=== PATIENT | female | born 1955 | race Caucasian/White ===

== ENCOUNTER 2024-06-08 17:38 | Emergency (ER) | payer OTHER ==
[2024-06-08 19:10] LABS: Absolute Basophils 0.1 K/uL (0-0.5); Absolute Eosinophils 0.3 K/uL (0-0.5); Absolute Lymphocytes (CBC) 1.6 K/uL (0.7-4.9); Absolute Monocytes 0.7 K/uL (0.1-1.3); Absolute Neutrophil 4.3 K/uL (1.8-8.0); Basophils % 1.8 % (0-1.3); Eosinophils % 4.1 % (0-4.4); Hematocrit 37.8 % (36.0-45.0); Hemoglobin 13.1 g/dL (12.0-15.0); Lymphocytes % 22.3 % (15.3-44.8); MCH 33.5 pg (27.0-35.0); MCHC 34.5 g/dL (32.0-36.0); MCV 96.9 fL (80-100); MPV 8.3 fL (7.6-11.3); Monocytes % 10.6 % (3.3-12.3); Neutrophils % 61.2 % (41.7-73.7); Nucleated Red Blood Cells % 0.1 % (0-0); Platelets 296 thou/uL (152-406); Red Cell Distribution Width 12.3 % (12.1-15.2)
[2024-06-08 19:51] LABS: ALT/SGPT 21 U/L (13-56); AST/SGOT 16 U/L (15-37); Albumin 3.4 g/dL (3.4-5.0); Alkaline Phosphatase 65 U/L (45-117); Anion Gap 8.8 mEq/L (5.0-15.0); BUN Blood Urea Nitrogen 23 mg/dL (7-18); Bicarbonate 31 mEq/L (21-32); Bilirubin Total 0.3 mg/dL (0.2-1.0); Globulin 3.4 g/dL (2.3-3.5); Glomerular Filtration Rate 52 ml/min (=/>90); Glucose Level 103 mg/dL (74-106); Magnesium 1.6 mg/dL (1.6-2.4); Potassium 3.8 mEq/L (3.5-5.1); Protein, Total 6.8 g/dL (6.4-8.2); Sodium Level 136 mEq/L (136-145)
[2024-06-08 19:53] LABS: Bilirubin Direct < 0.2 mg/dL (0-0.2); Bilirubin Indirect, Calculated 0.1 mg/dL (0.2-0.8)
--- NOTE | 2024-06-08 20:01 | EDPHYS ---
Physician Documentation [facility] Name: Morena Mcclure Age: 68 yrs Sex: Female : 1955 Arrival Date: 06/08/2024 Time: 17:38 Bed 20 Private MD: ED Physician Christopher Escalante HPI: 06/08 19:11 Chief Complaint: Elevated potassium level noted on routine blood draw. History of jr11 Present Illness: The patient is scheduled for a hip replacement on June 28 and had a routine blood draw in preparation for the surgery. During this blood draw, it was reported that the patient's potassium level was high. The patient was asymptomatic and did not experience any particular symptoms leading to the blood draw. It was noted that the elevated potassium could be due to hemolysis during the blood draw, as sometimes cells are damaged, leading to a falsely elevated potassium level. Despite this possibility, it is crucial to verify the potassium level due to potential life-threatening consequences of true hyperkalemia. The patient appears otherwise well and is active, having experienced limitations due to hip pain which prompted the upcoming hip replacement. Review of Systems: - General: No fever, chills, or malaise. - Cardiovascular: No chest pain. - Respiratory: No shortness of breath. - Musculoskeletal: Hip pain due to arthritis, requiring hip replacement. ROS otherwise negative. . Historical: - Allergies: 18:09 No Known Allergies; db - PMHx: 18:07 CERVICAL CANCER; BREAST CANCER; db - PSHx: 18:07 Appendectomy; db - Immunization history:: Adult Immunizations unknown. - Infectious Disease History:: Denies. Denies. - Social history:: Smoking status: Patient denies any tobacco usage or history of. Exam: 19:11 Constitutional: This is a well developed, well nourished patient who is awake, alert, jr11 and in no acute distress. Head/Face: Normocephalic, atraumatic. ENT: Nares patent. No nasal discharge, no septal abnormalities noted. Oropharynx with no redness, swelling, or masses, exudates, or evidence of obstruction, uvula midline. Mucous membranes moist. Neck: Trachea midline, no thyromegaly or masses palpated, and no cervical lymphadenopathy. Supple, full range of motion without nuchal rigidity, or vertebral point tenderness. No Meningismus. Chest/axilla: Normal chest wall appearance and motion. Nontender with no deformity. No lesions are appreciated. Cardiovascular: Regular rate and rhythm with a normal S1 and S2. No gallops, murmurs, or rubs. Normal PMI, no JVD. No pulse deficits. Skin: Warm, dry with normal turgor. Normal color with no rashes, no lesions, and no evidence of cellulitis. MS/ Extremity: Pulses equal, no cyanosis. Neurovascular intact. Full, normal range of motion. Vital Signs: 17:52 BP 169 / 89; Pulse 98; Resp 16; Temp 98.5; Pulse Ox 100% on R/A; Weight 64.86 kg; db Height 5 ft. 1 in. ; 19:00 BP 182 / 94; Pulse 83; Resp 17; Pulse Ox 97% ; me1 20:09 BP 179 / 80; Pulse 85; Resp 17; Temp 98.4; Pulse Ox 99% ; me1 17:52 Body Mass Index 27.02 (64.86 kg, 154.94 cm) db MDM: 18:17 Medical Screening Exam initiated jr11 19:11 Differential Diagnosis Medical Decision Making: The primary concern is to confirm jr11 whether the elevated potassium level is accurate or due to hemolysis during the blood draw. Given the critical nature of hyperkalemia, it is essential to rule out this possibility. The differential diagnosis includes: 1) Lab error due to hemolysis, 2) Chronic kidney disease potentially leading to hyperkalemia, 3) Adrenal insufficiency, and 4) Medication-induced hyperkalemia. While lab error is the most likely cause given the circumstances, verifying the potassium level is necessary to ensure patient safety. Plan: - Repeat potassium level with careful blood draw to avoid hemolysis. - Monitor for symptoms of hyperkalemia. - Proceed with preparations for hip replacement surgery. - Educate the patient on signs and symptoms of hyperkalemia. . ED course: EKG interpreted by me shows normal sinus rhythm, normal axis, normal intervals, no peaked T waves. 20:03 ED course: lab error, will DC. jr11 06/08 18:17 Order name: Basic Metabolic Panel; Complete Time: 20: jr11 06/08 18:17 Order name: CBC with Diff; Complete Time: 20: jr11 06/08 18:17 Order name: LFT's; Complete Time: 20:01 [facility] 06/08 18:17 Order name: Magnesium; Complete Time: 20:01 06/08 18:17 Order name: EKG; Complete Time: 18:18 06/08 18:17 Order name: Cardiac monitoring; Complete Time: 19:16 06/08 18:17 Order name: EKG - Nurse/Tech; Complete Time: 19:16 06/08 18:17 Order name: IV Saline Lock; Complete Time: 19:30 06/08 18:17 Order name: Labs collected and sent; Complete Time: 19:03 06/08 18:17 Order name: O2 Per Protocol; Complete Time: 19: 06/08 18:17 Order name: O2 Sat Monitoring; Complete Time: 19: 06/08 19:16 Order name: Misc. Order: lab recollect green top; Complete Time: 19:30 sp Administered Medications: 20:02 CANCELLED (wrongg): [id number] mg PO once jr11 Disposition Summary: 06/08/24 20:03 Discharge Ordered Notes: Location: Home(06/08/24 20:03) [facility] Condition: Stable(06/08/24 20:03) [facility] Diagnosis - Essential (primary) hypertension jr11 Discharge Instructions: - Discharge Summary Sheet jr11 - Hypertension, Adult [facility] Forms: - Medication Reconciliation Form jr11 - Antibiotic Education jr11 - Prescription Opioid Use jr11 - Patient Portal Instructions jr11 - Leadership Thank You Letter jr11 Signatures: Dispatcher [employer] EDMS Matilde Sow Jose, MD MD jr11 Ariadne Moser RN RN db Corrections: (The following items were deleted from the chart) 17:55 17:53 Allergies: No Known Allergies; db db 18:09 17:53 Allergies: Codeine; db db 18: 17:53 Allergies: PENICILLINS; db db 18: 17:53 Allergies: Ciprofloxacin; db db 18:09 17:53 Allergies: GENERIC TOPROLOL; db db 18:09 17:53 PMHx: Irregular heart rate; db db 18:09 17:53 PSHx: COLON SURGERY; db db 18: 17:53 PSHx: ILIOSTOMY; db db 18:09 17:53 PSHx: REVERSAL OF ILIOSTOMY; db db 18: 17:53 Infectious Disease History: Denies. db db 20:02 19:58 Xarelto PO 15 mg PO once ordered. jr11 jr11 20: 20:00 Home jr11 jr11 20: 20:00 Stable jr11 jr11 : 20:00 DVT jr11 jr11
--- NOTE | 2024-06-08 20:01 | ER ---
Nurse's Notes [facility] Name: Morena Mcclure Age: 68 yrs Sex: Female : 1955 Arrival Date: 06/08/2024 Time: 17:38 Bed 20 Private MD: Diagnosis: Essential (primary) hypertension Presentation: 06/08 17:52 Chief complaint: Patient states: STATES HAD BLOOD DRAWN TODAY AT [facility] WAS CALLED db AND TOLD TO COME TO ED DUE TO POTASSIUM 6.4. Coronavirus screen: Client denies travel out of the [place] in the last 14 days. At this time, the client does not indicate any symptoms associated with coronavirus-19. Ebola Screen: Patient negative for fever greater than or equal to 101.5 degrees Fahrenheit, and additional compatible Ebola Virus Disease symptoms Patient denies exposure to infectious person. Patient denies travel to an Ebola-affected area in the 21 days before illness onset. No symptoms or risks identified at this time. Initial Sepsis Screen: Does the patient meet any 2 criteria? No. Patient's initial sepsis screen is negative. Does the patient have a suspected source of infection? No. Patient's initial sepsis screen is negative. Risk Assessment: Do you want to hurt yourself or someone else? Patient reports no desire to harm self or others. Onset of symptoms was June 08, 2024. 17:52 Acuity: SARWAT 3 db 17:52 Method Of Arrival: Ambulatory db Triage Assessment: 17:53 General: Appears in no apparent distress. comfortable, Behavior is calm, cooperative. db Pain: Denies pain. Neuro: Level of Consciousness is awake, alert, obeys commands, Oriented to person, place, time, situation. Respiratory: Airway is patent Respiratory effort is even, unlabored, Respiratory pattern is regular, symmetrical. Historical: - Allergies: 18:09 No Known Allergies; db - PMHx: 18:07 CERVICAL CANCER; BREAST CANCER; db - PSHx: 18:07 Appendectomy; db - Immunization history:: Adult Immunizations unknown. - Infectious Disease History:: Denies. Denies. - Social history:: Smoking status: Patient denies any tobacco usage or history of. Screenin:40 [facility] ED Fall Risk Assessment (Adult) History of falling in the last 3 months, me1 including since admission No falls in past 3 months (0 pts) Confusion or Disorientation No (0 pts) Intoxicated or Sedated No (0 pts) Impaired Gait No (0 pts) Mobility Assist Device Used No (0 pt) Altered Elimination No (0 pt) Score/Fall Risk Level 0 - 2 = Low Risk Maintained a safe environment, Provided non-skid footwear, Hourly rounding (assess needs \T\ fall precautionary measures) done. Abuse screen: Denies threats or abuse. Nutritional screening: No deficits noted. Tuberculosis screening: No symptoms or risk factors identified. Assessment: 18:40 General: Appears in no apparent distress. well groomed, well developed, well nourished, me1 Behavior is calm, cooperative, appropriate for age, Reports STATES HAD BLOOD DRAWN TODAY AT [facility] WAS CALLED AND TOLD TO COME TO ED DUE TO POTASSIUM 6.4. Pain: Denies pain. Neuro: Level of Consciousness is awake, alert, obeys commands, Oriented to person, place, time, situation, Appropriate for age. Cardiovascular: Patient's skin is warm and dry. Respiratory: Airway is patent Respiratory effort is even, unlabored, Respiratory pattern is regular, symmetrical. GI: No signs and/or symptoms were reported involving the gastrointestinal system. : No signs and/or symptoms were reported regarding the genitourinary system. EENT: No signs and/or symptoms were reported regarding the EENT system. Derm: Skin is intact, is healthy with good turgor, Skin is pink, warm \T\ dry. Musculoskeletal: No signs and/or symptoms reported regarding the musculoskeletal system. Vital Signs: 17:52 BP 169 / 89; Pulse 98; Resp 16; Temp 98.5; Pulse Ox 100% on R/A; Weight 64.86 kg; db Height 5 ft. 1 in. ; 19:00 BP 182 / 94; Pulse 83; Resp 17; Pulse Ox 97% ; me1 20:09 BP 179 / 80; Pulse 85; Resp 17; Temp 98.4; Pulse Ox 99% ; me1 17:52 Body Mass Index 27.02 (64.86 kg, 154.94 cm) db ED Course: 17:41 Patient arrived in ED. im 17:53 Triage completed. db 17:54 Christopher Escalante MD is Attending Physician. jr11 17:56 Arm band placed on right wrist. db 18:40 Renae Archibald, RN is Primary Nurse. me1 18:40 Patient has correct armband on for positive identification. Bed in low position. Call me1 light in reach. Side rails up X2. Provided Education on: POC. Verbalized understanding.. Client placed on continuous cardiac and pulse oximetry monitoring. NIBP monitoring applied. Pulse ox on. NIBP on. 18:40 No provider procedures requiring assistance completed. me1 19:30 Inserted saline lock: 20 gauge in right antecubital area, using aseptic technique. af3 Blood collected. Flushed with 10 mL NS. 20:12 IV discontinued, intact, bleeding controlled, No redness/swelling at site. Pressure me1 dressing applied. Administered Medications: 20:02 CANCELLED (wrongg): [id number] mg PO once jr11 Medication: 18:40 VIS not applicable for this client. me1 Outcome: 20:00 Discharge ordered by . jr11 20:03 Discharge ordered by MD. jr11 20:12 Discharged to home ambulatory, with significant other, me1 20:12 Condition: stable 20:12 Discharge instructions given to patient, significant other, Instructed on discharge instructions, follow up and referral plans. Demonstrated understanding of instructions, follow-up care, 20:13 Patient left the ED. me1 Signatures: Christopher Escalante MD MD jr11 Ariadne Moser, RN RN db Elizabeth Doyle Michelle, RN RN me1 Gabrielle Dave af3 Corrections: (The following items were deleted from the chart) 17:55 17:53 Allergies: No Known Allergies; db db 17:56 17:52 Chief complaint: Patient states: CALLED BACK TO ER FOR ABNORMAL URINE CULTURE. db TOLD NEEDS ABX IV db 18:07 17:52 Chief complaint: Patient states: CALLED BACK TO ER FOR ABNORMAL URINE CULTURE. db TOLD NEEDS ABX IV. COMPLAINS OF NAUSEA. STATES ILIOSTOMY REVERSAL IN APRIL 27 db 18: 17:52 Method Of Arrival: Ambulatory db db 18: 17:52 BP 154 / 78; Pulse 57bpm; Resp 16bpm; Pulse Ox 100% RA; Temp 98.7F; 64.86 kg; db Height 4 ft. 8 in.; BMI: 32.0; db 18: 17:53 Allergies: Codeine; db db 18: 17:53 Allergies: PENICILLINS; db db 18: 17:53 Allergies: Ciprofloxacin; db db 18 17:53 Allergies: GENERIC TOPROLOL; db db 18 17:53 PMHx: Irregular heart rate; db db 18 17:53 PSHx: COLON SURGERY; db db 18 17:53 PSHx: ILIOSTOMY; db db 18 17:53 PSHx: REVERSAL OF ILIOSTOMY; db db 18 17:53 Infectious Disease History: Denies. db db 18 17:53 GI: Reports nausea, db db 19: 17:52 Chief complaint: Patient states: STATES HAD BLOOD DRAWN TODAY AT [facility] WAS me1 CALLED AND TOLD TO COME TO ED DUE TO POTASSIUM 6.4. db
[2024-06-08 20:28] VITALS: BP 179/80; TEMP 98.4; O2SAT 99
== END 2024-06-08 20:13 | disposition home or self-care (01) ==
LOC: ER 17:38
DX: I10 Essential (primary) hypertension (principal); R79.89 Other specified abnormal findings of blood chemistry; Z85.3 Personal history of malignant neoplasm of breast; Z85.41 Personal history of malignant neoplasm of cervix uteri
CPT/HCPCS: 36415; 80048; 80076; 83735; 85025; 93005

== ENCOUNTER 2024-07-18 22:45 | Emergency (ER) | payer OTHER ==
[2024-07-18] MEDS ORDERED: ONDANSETRON 4 MG/2 ML VIAL ONE (23:02)
[2024-07-18] MEDS ORDERED: KETOROLAC 30 MG/ML INJ ONE (23:02)
[2024-07-18] MEDS ORDERED: droPERidol 5 MG/2 ML VIAL ONE (23:02)
[2024-07-18] MEDS ORDERED: FENTANYL CITR 100 MCG/2 ML ONE (23:03)
[2024-07-18] MEDS ORDERED: NA CHLORIDE 0.9% 500 ML ONE (23:03)
[2024-07-18 23:20] LABS: PT Prothrombin Time 12.7 SECONDS (10-13.0); Protime INR 1.12
[2024-07-18 23:21] LABS: Absolute Basophils 0.1 K/uL (0-0.5); Absolute Eosinophils 0.4 K/uL (0-0.5); Absolute Lymphocytes (CBC) 1.4 K/uL (0.7-4.9); Absolute Monocytes 0.6 K/uL (0.1-1.3); Absolute Neutrophil 3.2 K/uL (1.8-8.0); Basophils % 0.9 % (0-1.3); Eosinophils % 7.2 % (0-4.4); Hematocrit 34.1 % (36.0-45.0); Hemoglobin 11.6 g/dL (12.0-15.0); Lymphocytes % 25.2 % (15.3-44.8); MCH 31.7 pg (27.0-35.0); MCV 93.2 fL (80-100); MPV 7.2 fL (7.6-11.3); Monocytes % 11.2 % (3.3-12.3); Neutrophils % 55.5 % (41.7-73.7); Nucleated Red Blood Cells % 0.2 % (0-0); Platelets 526 thou/uL (152-406); RBC Red Blood Cell Count 3.66 M/uL (3.86-4.86); Red Cell Distribution Width 12.4 % (12.1-15.2)
[2024-07-18 23:33] LABS: Albumin 3.3 g/dL (3.4-5.0); Albumin/Globulin Ratio 0.8 (1.1-1.8); Anion Gap 13.5 mEq/L (5.0-15.0); Bilirubin Total 0.3 mg/dL (0.2-1.0); Potassium 3.5 mEq/L (3.5-5.1); Protein, Total 7.3 g/dL (6.4-8.2)
[2024-07-18] MEDS ORDERED: ETOMIDATE 20 MG/10 ML VIAL IV ONE (23:57)
[2024-07-19] MEDS ORDERED: MIDAZOLAM HCL 5 ML ONE (00:18)
[2024-07-19] MEDS ORDERED: NA CHLORIDE 0.9% 1,000 ML ONE (01:05)
--- NOTE | 2024-07-19 05:55 | RAD REPORT ---
CLINICAL HISTORY: The patient is 69 years old and is Female; left hip pain TECHNIQUE: Frontal view of the pelvis. COMPARISON: No relevant prior studies available. FINDINGS: BONES/JOINTS: Dislocated left hip prosthesis is present. The right femoral head is located. The SI joints and pubic symphysis are intact. No acute fracture. SOFT TISSUES: Multiple surgical clips project within the pelvis. IMPRESSION: Dislocated left hip prosthesis is present. Electronically signed by: Aleyda Ruiz MD 07/19/2024 12:30 AM CDT Due to temporary technical issues with the PACS/[employer] reporting system, reports are being catracho d by the in-house radiologist without review as a courtesy to ensure prompt reporting the interpreting radiologist is fully responsible for the content of the report. Transcribed Date/Time: 07/19/2024 5:54 AM
--- NOTE | 2024-07-19 05:56 | RAD REPORT ---
EXAM: XR Left Femur, 2 Views CLINICAL HISTORY: The patient is 69 years old and is Female; lt femur pain TECHNIQUE: Frontal and lateral views of the left femur. COMPARISON: No relevant prior studies available. FINDINGS: BONES/JOINTS: A left hip prosthesis is present. The hardware is engaged. The left femur is intact . No acute fracture. No dislocation. SOFT TISSUES: Unremarkable. IMPRESSION: No acute findings in the left femur. Electronically signed by: Aleyda Ruiz MD 07/19/2024 01:27 AM CDT Due to temporary technical issues with the PACS/[employer] reporting system, reports are being catracho d by the in-house radiologist without review as a courtesy to ensure prompt reporting the interpreting radiologist is fully responsible for the content of the report. Transcribed Date/Time: 07/19/2024 5:56 AM
--- NOTE | 2024-07-19 05:57 | RAD REPORT ---
EXAM: XR Pelvis, 1 or 2 Views CLINICAL HISTORY: The patient is 69 years old and is Female; after reduction TECHNIQUE: Frontal view of the pelvis. COMPARISON: XR Pelvis dated Jul 18 2024 FINDINGS: BONES/JOINTS: The femoral heads are located. The SI joints and pubic symphysis are intact without evidence of diastases. Interval successful reduction of previously demonstrated left hip prosthesis dislocation. No acute fracture. SOFT TISSUES: Multiple surgical clips project within the soft tissues of the pelvis. IMPRESSION: Interval successful reduction of previously demonstrated left hip prosthesis dislocation. Electronically signed by: Aleyda Ruiz MD 07/19/2024 01:27 AM CDT RP Due to temporary technical issues with the PACS/[employer] reporting system, reports are being catracho d by the in-house radiologist without review as a courtesy to ensure prompt reporting the interpreting radiologist is fully responsible for the content of the report. Transcribed Date/Time: 07/19/2024 5:56 AM
--- NOTE | 2024-07-19 06:15 | ER ---
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 had al5 surgery on hip about 3 weeks ago. 22:50 Coronavirus screen: At this time, the client does not indicate any symptoms associated al5 with coronavirus-19. Ebola Screen: No symptoms or risks identified at this time. Initial Sepsis Screen: Does the patient meet any 2 criteria? No. Patient's initial sepsis screen is negative. Does the patient have a suspected source of infection? No. Patient's initial sepsis screen is negative. Risk Assessment: Do you want to hurt yourself or someone else? Patient reports no desire to harm self or others. Onset of symptoms was July 18, 2024. 22:50 Method Of Arrival: EMS: [facility] al5 22:50 Acuity: SARWAT 3 al5 22:50 Care prior to arrival: Medication(s) given: Tylenol, 1000 mg, IV, 65 mcg fentanyl IV al5 initiated. 20 GA, in the right antecubital area. Triage Assessment: 22:51 General: Appears in no apparent distress. uncomfortable, Behavior is cooperative, al5 crying, restless. Pain: Complains of pain in left hip Pain currently is 10 out of 10 on a pain scale. 22:51 EENT: No signs and/or symptoms were reported regarding the EENT system. Neuro: Level of al5 Consciousness is awake, alert, obeys commands, Oriented to person, place, time, situation. Cardiovascular: Capillary refill < 3 seconds Patient's skin is warm and dry. Respiratory: Airway is patent Respiratory effort is even, unlabored, Respiratory pattern is regular, symmetrical. GI: No signs and/or symptoms were reported involving the gastrointestinal system. : No signs and/or symptoms were reported regarding the genitourinary system. Derm: Skin is intact, is healthy with good turgor, Skin is pink, warm \T\ dry. normal. Musculoskeletal: Reports pain in left hip Pain is 10 out of 10 on a pain scale. Historical: - Allergies: 22:51 No Known Allergies; al5 - PMHx: 22:51 breast cancer; cervical cancer; al5 - PSHx: 22:51 Appendectomy; double mastectomy; L hip replacement; al5 - Immunization history:: Adult Immunizations up to date. - Infectious Disease History:: Denies. - Social history:: Smoking status: Patient denies any tobacco usage or history of. - Family history:: not pertinent. Screenin:55 [facility] ED Fall Risk Assessment (Adult) History of falling in the last 3 months, al5 including since admission No falls in past 3 months (0 pts) Confusion or Disorientation No (0 pts) Intoxicated or Sedated No (0 pts) Impaired Gait Yes (1 pt) Mobility Assist Device Used Yes (1 pt) Altered Elimination Yes (1 pt) Score/Fall Risk Level 3 or more points = High Risk Oriented to surroundings, Maintained a safe environment, Hourly rounding (assess needs \T\ fall precautionary measures) done. Abuse screen: Denies threats or abuse. Denies injuries from another. Nutritional screening: No deficits noted. Tuberculosis screening: No symptoms or risk factors identified. Assessment: 22:54 Reassessment: see triage assessment. al5 23:59 Reassessment: Patient appears in no apparent distress at this time. No changes from al5 previously documented assessment. Patient and/or family updated on plan of care and expected duration. Pain level reassessed. Patient is alert, oriented x 3, equal unlabored respirations, skin warm/dry/pink. 07/19 00:56 Reassessment: Patient appears in no apparent distress at this time. Patient and/or al5 family updated on plan of care and expected duration. Pain level reassessed. Patient is alert, oriented x 3, equal unlabored respirations, skin warm/dry/pink. patient resting comfortably at this time, alert to painful stimuli, provider aware; patient on cardiac on monitor, vss. 01:50 Reassessment: Patient appears in no apparent distress at this time. Patient and/or al5 family updated on plan of care and expected duration. Pain level reassessed. Patient is alert, oriented x 3, equal unlabored respirations, skin warm/dry/pink. patient awake to verbal stimuli, easily arousable. provider notified and aware. 03:12 Reassessment: Patient appears in no apparent distress at this time. No changes from km10 previously documented assessment. Patient and/or family updated on plan of care and expected duration. Pain level reassessed. Patient is alert, oriented x 3, equal unlabored respirations, skin warm/dry/pink. 04:30 Reassessment: Patient appears in no apparent distress at this time. No changes from km10 previously documented assessment. Patient and/or family updated on plan of care and expected duration. Pain level reassessed. Patient is alert, oriented x 3, equal unlabored respirations, skin warm/dry/pink. 05:30 Reassessment: Patient appears in no apparent distress at this time. No changes from km10 previously documented assessment. Patient and/or family updated on plan of care and expected duration. Pain level reassessed. Patient is alert, oriented x 3, equal unlabored respirations, skin warm/dry/pink. 06:26 Reassessment: Patient appears in no apparent distress at this time. Patient states km10 feeling better. 06:39 Reassessment: Martin (pt's brother)was called and notified that she is ready to be picked km10 up. ETA 20 min. [phone]. 07:08 Reassessment: Patient appears in no apparent distress at this time. Patient and/or ph family updated on plan of care and expected duration. Pain level reassessed. Patient is alert, oriented x 3, equal unlabored respirations, skin warm/dry/pink. Pt brother at bedside, d/c home w/ family. Vital Signs: 07/18 22:59 BP 179 / 82; Pulse 83; Resp 18; Temp 98.1(O); Pulse Ox 100% on R/A; Weight 63.05 kg; oe Height 5 ft. 1 in. ; Pain 12/02; 07/19 00:00 BP 132 / 78; Pulse 91; Resp 16; Pulse Ox 100% ; al5 00:18 BP 165 / 81; Pulse 98; Resp 28; Pulse Ox 100% on 4 lpm NC; al5 00:20 BP 164 / 77; Pulse 105; Resp 14; Pulse Ox 99% on 4 lpm NC; al5 00:22 BP 124 / 68; Pulse 103; Resp 19; Pulse Ox 96% on 4 lpm NC; al5 00:25 BP 115 / 61; Pulse 104; Resp 19; Pulse Ox 98% on 4 lpm NC; al5 00:30 BP 91 / 52; Pulse 103; Resp 18; Pulse Ox 100% on 4 lpm NC; al5 00:35 BP 114 / 63; Pulse 99; Resp 17; Pulse Ox 100% on 4 lpm NC; al5 00:40 BP 99 / 55; Pulse 98; Resp 17; Pulse Ox 100% on 4 lpm NC; al5 00:45 BP 99 / 52; Pulse 99; Resp 17; Pulse Ox 100% on 4 lpm NC; al5 00:50 BP 97 / 60; Pulse 100; Resp 17; Pulse Ox 100% on 4 lpm NC; al5 01:00 BP 111 / 59; Pulse 93; Resp 15; Pulse Ox 100% on 4 lpm NC; al5 01:30 BP 113 / 63; Pulse 99; Resp 16; Pulse Ox 100% on 4 lpm NC; al5 02:00 BP 128 / 74; Pulse 90; Resp 13; Pulse Ox 100% on 4 lpm NC; al5 02:30 BP 129 / 73; Pulse 89; Resp 13; Pulse Ox 100% on 4 lpm NC; al5 03:00 BP 121 / 63; Pulse 92; Resp 15; Pulse Ox 100% on 4 lpm NC; al5 03:12 BP 126 / 63; Pulse 93; Resp 4; Pulse Ox 100% on 4 lpm NC; km10 06:26 BP 107 / 50; Pulse 91; Resp 16; Temp 98.1(O); Pulse Ox 95% on R/A; km10 07/18 22:59 Body Mass Index 26.26 (63.05 kg, 154.94 cm) oe 07/18 22:59 Pain Scale: Adult oe Steve Coma Score: 06:07 Eye Response: spontaneous(4). Motor Response: obeys commands(6). Verbal Response: sp4 oriented(5). Total: 15. 06:26 Eye Response: spontaneous(4). Motor Response: obeys commands(6). Verbal Response: km10 oriented(5). Total: 15. ED Course: 07/18 22:50 Patient arrived in ED. rv1 22:52 Arm band placed on right wrist. Patient placed in the treatment room, in view of staff al5 members, on oxygen, on pulse oximetry. 22:54 Rodríguez Andersen MD is Attending Physician. sp4 22:55 Cynthia Lezama, ELENO is Primary Nurse. al5 22:56 Patient has correct armband on for positive identification. Bed in low position. Call al5 light in reach. Side rails up X2. Provided Education on: plan of care. 22:57 Maintain EMS IV. Dressing intact. Good blood return noted. Site clean \T\ dry. Gauge \T\ al 5 site: 20G RAC. Flushed with 10 mL NS. 23:19 Provided Education on: Procedure Consent. al5 23:22 Triage completed. al5 23:53 Pelvis XRAY In Process Unspecified. EDMS 07/19 00:22 Assist provider with reduction of left pathologic or non traumatic hip using al5 manipulation, Set up for procedure. Performed by Rodríguez Andersen MD Patient tolerated well. 00:43 Femur Left In Process Unspecified. EDMS 00:44 Pelvis XRAY In Process Unspecified. EDMS 06:27 IV discontinued, intact, bleeding controlled, No redness/swelling at site. Pressure km10 dressing applied. Administered Medications: 07/18 23:20 Drug: Droperidol IVP 2.5 mg IVP once Route: IVP; Site: right antecubital; al5 07/19 00:32 Follow up: Response: No adverse reaction; Pain is decreased al5 07/18 23:20 Drug: fentaNYL (PF) IVP 100 mcg IVP once Route: IVP; Site: right antecubital; al5 07/19 00:00 Follow up: Response: No adverse reaction; Pain is decreased al5 07/18 23:20 Drug: Ondansetron IVP 4 mg IVP once; over 2 minutes Route: IVP; Site: right antecubital;al5 07/19 00:00 Follow up: Response: No adverse reaction al5 07/18 23:20 Drug: Ketorolac IVP 30 mg IVP once Route: IVP; Site: right antecubital; al5 07/19 00:00 Follow up: Response: No adverse reaction; Pain is decreased al5 00:13 Drug: NS 0.9% IV 500 ml 500 ml IV at 1 bolus once; to be given as a bolus over 30 al5 minutes Volume: 500 ml; Route: IV; Rate: 1 bolus; Site: right antecubital; 07:10 Follow up: Response: No adverse reaction; IV Status: Completed infusion ph 00:13 Drug: Etomidate IVP 10 mg IVP once Route: IVP; Site: right antecubital; al5 07:09 Follow up: Response: No adverse reaction ph 00:18 Drug: Midazolam IVP or IV 5 mg IVP once Route: IVP; Site: right antecubital; al5 06:25 Follow up: Response: No adverse reaction km10 00:20 Drug: Etomidate IVP 10 mg IVP once Route: IVP; Site: right antecubital; al5 07:09 Follow up: Response: No adverse reaction ph 06:25 Drug: [place] PO 10 mg-325 mg 1 tabs PO once Route: PO; km10 06:41 Follow up: Response: No adverse reaction km10 Medication: 07/18 22:50 VIS not applicable for this client. al5 Outcome: 07/19 06:14 Discharge ordered by MD. rushing 07:08 Discharged to home via wheelchair, with family, ph 07:08 Condition: good 07:08 Discharge instructions given to patient, family, Instructed on discharge instructions, follow up and referral plans. medication usage, Demonstrated understanding of instructions, follow-up care, medications, Prescriptions given X 1, 07:08 Patient left the ED. ph Signatures: Dispatcher [employer] EDMA Anita Hartman RN RN Terrance Friedman Rebecca rv1 Rodríguez Andersen MD MD sp4 Cynthia Lezama RN RN al5 Alina Arellano RN RN km10 Corrections: (The following items were deleted from the chart) 07/18 23:23 22:51 PSHx: Appendectomy; al5 al5 23:23 22:51 PSHx: hip surgery (L) (Appendectomy); al5 al5 23:26 23:25 Care prior to arrival: Medication(s) given: Tylenol, 1000 mg, IV, 65 mcg fentanyl al5 IV initiated. 20 GA, in the right antecubital area, al5 07/19 00:32 00:00 Response: No adverse reaction al5 al5 00:56 00:22 BP 124 / 68; Pulse 103bpm; Resp 19bpm; Pulse Ox 96% 4 lpm; al5 al5 :07/18 22:57 No provider procedures requiring assistance completed. al5 5 07/19 00:07/18 22:56 Provided Education on: plan of care. al5 07/19:07/18 22:56 Provided Education on: Procedure Consent, plan of care. al5 [facility] 07/19 01:53 00:56 Reassessment: Patient appears in no apparent distress at this time. Patient al5 and/or family updated on plan of care and expected duration. Pain level reassessed. Patient is alert, oriented x 3, equal unlabored respirations, skin warm/dry/pink. patient resting comfortably at this time, patient on cardiac on monitor, vss al5 01:50 Reassessment: Patient appears in no apparent distress at this time. Patient al5 and/or family updated on plan of care and expected duration. Pain level reassessed. Patient is alert, oriented x 3, equal unlabored respirations, skin warm/dry/pink. patient awake to verbal stimuli, provider notified al5
--- NOTE | 2024-07-19 06:15 | EDPHYS ---
Physician Documentation [facility] Name: Morena Mcclure Age: 69 yrs Sex: Female : 1955 Arrival Date: 07/18/2024 Time: 22:45 Bed 20 Private MD: ED Physician Rodríguez Andersen HPI: 07/19 03:48 This 69 yrs old Female presents to ER via EMS with complaints of Hip Injury, sp4 Hip Pain. 04:52 6-year-old female with history of left total hip replacement presents with acute sp4 moderate to severe left hip pain and deformity indicative dislocation. Left hip total arthroplasty surgery was done at [facility], was done at [facility] 3 weeks ago.. Historical: - Allergies: 07/18 22:51 No Known Allergies; al5 - PMHx: 22:51 breast cancer; cervical cancer; al5 - PSHx: 22:51 Appendectomy; double mastectomy; L hip replacement; al5 - Immunization history:: Adult Immunizations up to date. - Infectious Disease History:: Denies. - Social history:: Smoking status: Patient denies any tobacco usage or history of. - Family history:: not pertinent. ROS: 07/19 06:07 Constitutional: Negative for fever, chills, and weight loss, positive for acute sp4 moderate to severe left hip All other systems are negative, Exam: 06:07 Constitutional: This is a well developed, well nourished patient who is awake, alert, sp4 severe distress secondary to pain Head/Face: Normocephalic, atraumatic. Eyes: Pupils equal round and reactive to light, extra-ocular motions intact. Lids and lashes normal. Conjunctiva and sclera are not injected. Cornea within normal limits. Periorbital areas with no swelling, redness, or edema. ENT: Nares patent. No nasal discharge, no septal abnormalities noted. Tympanic membranes are normal and external auditory canals are clear. Oropharynx with no redness, swelling, or masses, exudates, or evidence of obstruction, uvula midline. Mucous membranes moist. Neck: Trachea midline, no thyromegaly or masses palpated, and no cervical lymphadenopathy. Supple, full range of motion without nuchal rigidity, or vertebral point tenderness. Chest/axilla: Normal chest wall appearance and motion. Nontender with no deformity. No lesions are appreciated. Cardiovascular: Regular rate and rhythm with a normal S1 and S2. No gallops, murmurs, or rubs. Normal PMI, no JVD. No pulse deficits. Respiratory: Lungs have equal breath sounds bilaterally, clear to auscultation and percussion. No rales, rhonchi or wheezes noted. No increased work of breathing, no retractions or nasal flaring. Abdomen/GI: Soft, with normal bowel sounds. No distension or tympany. No guarding or rebound. No evidence of tenderness throughout. Back: No spinal tenderness. No costovertebral tenderness. Skin: Warm, dry with normal turgor. Normal color with no rashes, no lesions, and no evidence of cellulitis. MS/ Extremity: Pulses equal, no cyanosis. Neurovascular intact. Positive moderate left hip deformity indicative of a left hip dislocation, intact peripheral pulses Neuro: Awake and alert, GCS 15, oriented to person, place, time, and situation. Cranial nerves II-XII grossly intact. Motor strength 5/5 in all extremities. Sensory grossly intact. Psych: Awake, alert, with orientation to person, place and time. Behavior, mood, and affect are within normal limits Vital Signs: 07/18 22:59 BP 179 / 82; Pulse 83; Resp 18; Temp 98.1(O); Pulse Ox 100% on R/A; Weight 63.05 kg; oe Height 5 ft. 1 in. ; Pain 10/10; 07/19 00:00 BP 132 / 78; Pulse 91; Resp 16; Pulse Ox 100% ; al5 00:18 BP 165 / 81; Pulse 98; Resp 28; Pulse Ox 100% on 4 lpm NC; al5 00:20 BP 164 / 77; Pulse 105; Resp 14; Pulse Ox 99% on 4 lpm NC; al5 00:22 BP 124 / 68; Pulse 103; Resp 19; Pulse Ox 96% on 4 lpm NC; al5 00:25 BP 115 / 61; Pulse 104; Resp 19; Pulse Ox 98% on 4 lpm NC; al5 00:30 BP 91 / 52; Pulse 103; Resp 18; Pulse Ox 100% on 4 lpm NC; al5 00:35 BP 114 / 63; Pulse 99; Resp 17; Pulse Ox 100% on 4 lpm NC; al5 00:40 BP 99 / 55; Pulse 98; Resp 17; Pulse Ox 100% on 4 lpm NC; al5 00:45 BP 99 / 52; Pulse 99; Resp 17; Pulse Ox 100% on 4 lpm NC; al5 00:50 BP 97 / 60; Pulse 100; Resp 17; Pulse Ox 100% on 4 lpm NC; al5 01:00 BP 111 / 59; Pulse 93; Resp 15; Pulse Ox 100% on 4 lpm NC; al5 01:30 BP 113 / 63; Pulse 99; Resp 16; Pulse Ox 100% on 4 lpm NC; al5 02:00 BP 128 / 74; Pulse 90; Resp 13; Pulse Ox 100% on 4 lpm NC; al5 02:30 BP 129 / 73; Pulse 89; Resp 13; Pulse Ox 100% on 4 lpm NC; al5 03:00 BP 121 / 63; Pulse 92; Resp 15; Pulse Ox 100% on 4 lpm NC; al5 03:12 BP 126 / 63; Pulse 93; Resp 4; Pulse Ox 100% on 4 lpm NC; km10 06:26 BP 107 / 50; Pulse 91; Resp 16; Temp 98.1(O); Pulse Ox 95% on R/A; km10 07/18 22:59 Body Mass Index 26.26 (63.05 kg, 154.94 cm) oe 07/18 22:59 Pain Scale: Adult oe Steve Coma Score: 06:07 Eye Response: spontaneous(4). Motor Response: obeys commands(6). Verbal Response: sp4 oriented(5). Total: 15. 06:26 Eye Response: spontaneous(4). Motor Response: obeys commands(6). Verbal Response: km10 oriented(5). Total: 15. Procedures: 03:48 Reduction: of the left hip, using traction, manipulation, Immobilized with No sp4 immobilization. Patient tolerated well. Post reduction film - reveals normal alignment. I reduced under moderate sedation. Procedural sedation: Pre-procedure assessment: the patient has been NPO 4 hour(s) prior to arrival, ASA physical classification: II - mild/mod systemic disease that does not interfere with daily routines, Airway assessment: able to hyperextend neck, able to maintain airway, can open mouth without difficulty, Mallampati classification of tongue size: II - faucial pillars and soft palate can be visualized, but uvula is masked by the base of the tongue, Monitoring during procedure: rn cardiac, continuous pulse oximetry, nurse at bedside at all times, Medications employed: Etomidate, 20 mg(s), Versed, 5 mg(s), Alternatives to procedural sedation discussed Moderate sedation accomplished for a left hip reduction, Post-procedure assessment: the patient is moderately sedated, Freeman sedation score: 4 - brisk response to a light glabellar tap, Respiratory status: requires supplemental oxygen to maintain acceptable oxygen saturation, a reversal agent was not used, Total sedation time 36 minutes, after sedation instructions were provided for the patient.. MDM: 06:05 ED course: EXAM: XR Pelvis, 1 or 2 Views CLINICAL HISTORY: The patient is 69 years old sp4 and is Female; left hip pain TECHNIQUE: Frontal view of the pelvis. COMPARISON: No relevant prior studies available. FINDINGS: BONES/JOINTS: Dislocated left hip prosthesis is present. The right femoral head is located. The SI joints and pubic symphysis are intact. No acute fracture. SOFT TISSUES: Multiple surgical clips project within the pelvis. IMPRESSION: Dislocated left hip prosthesis is present. Electronically signed by: Aleyda Ruiz MD 07/19/2024 12:30 AM. ED course: EXAM: XR Left Femur, 2 Views CLINICAL HISTORY: The patient is 69 years old and is Female; lt femur pain TECHNIQUE: Frontal and lateral views of the left femur. COMPARISON: No relevant prior studies available. FINDINGS: BONES/JOINTS: A left hip prosthesis is present. The hardware is engaged. The left femur is intact. No acute fracture. No dislocation. SOFT TISSUES: Unremarkable. IMPRESSION: No acute findings in the left femur. . 06:11 ED course: EXAM: XR Pelvis, 1 or 2 Views CLINICAL HISTORY: The patient is 69 years old sp4 and is Female; after reduction TECHNIQUE: Frontal view of the pelvis. COMPARISON: XR Pelvis dated Jul 18 2024 FINDINGS: BONES/JOINTS: The femoral heads are located. The SI joints and pubic symphysis are intact without evidence of diastases. Interval successful reduction of previously demonstrated left hip prosthesis dislocation. No acute fracture. SOFT TISSUES: Multiple surgical clips project within the soft tissues of the pelvis. IMPRESSION: Interval successful reduction of previously demonstrated left hip prosthesis dislocation. . 06:11 Differential diagnosis: hip fracture, intertrochanteric fracture, femoral neck sp4 fracture, femoral shaft fracture, bursitis, arthritis, strain. Data reviewed: vital signs, nurses notes, EMS record, old medical records, radiologic studies, plain films. 06:13 Consideration of Admission/Observation Escalation of care including sp4 admission/observation considered. ED course: Patient managed to stand up and ambulate. Patient stable for discharge home.. 06:14 Medical Screening Exam initiated 4 07/18 22:55 Order name: CBC with Diff; Complete Time: 00:24 sp4 07/18 22:55 Order name: CMP; Complete Time: 00:24 sp4 07/18 22:55 Order name: PT-INR; Complete Time: 00:24 sp4 07/18 22:55 Order name: Pelvis XRAY [facility] 07/19 00:23 Order name: Pelvis XRAY [facility] 07/19 00:42 Order name: Femur Left [facility] 07/18 22:55 Order name: IV Saline Lock; Complete Time: 22:55 4 07/18 22:55 Order name: Labs collected and sent; Complete Time: 22:55 [facility] 07/18 22:55 Order name: Moderate Sedation; Complete Time: 23:42 sp4 Administered Medications: 07/18 23:20 Drug: Droperidol IVP 2.5 mg IVP once Route: IVP; Site: right antecubital; al07/19 00:32 Follow up: Response: No adverse reaction; Pain is decreased 07/18 23:20 Drug: fentaNYL (PF) IVP 100 mcg IVP once Route: IVP; Site: right antecubital; 07/19 00:00 Follow up: Response: No adverse reaction; Pain is decreased 07/18 23:20 Drug: Ondansetron IVP 4 mg IVP once; over 2 minutes Route: IVP; Site: right antecubital;07/19 00:00 Follow up: Response: No adverse reaction 07/18 23:20 Drug: Ketorolac IVP 30 mg IVP once Route: IVP; Site: right antecubital; 07/19 00:00 Follow up: Response: No adverse reaction; Pain is decreased al5 00:13 Drug: NS 0.9% IV 500 ml 500 ml IV at 1 bolus once; to be given as a bolus over 30 al5 minutes Volume: 500 ml; Route: IV; Rate: 1 bolus; Site: right antecubital; 07:10 Follow up: Response: No adverse reaction; IV Status: Completed infusion ph 00:13 Drug: Etomidate IVP 10 mg IVP once Route: IVP; Site: right antecubital; al5 07:09 Follow up: Response: No adverse reaction ph 00:18 Drug: Midazolam IVP or IV 5 mg IVP once Route: IVP; Site: right antecubital; al5 06:25 Follow up: Response: No adverse reaction km10 00:20 Drug: Etomidate IVP 10 mg IVP once Route: IVP; Site: right antecubital; al5 07:09 Follow up: Response: No adverse reaction ph 06:25 Drug: [place] PO 10 mg-325 mg 1 tabs PO once Route: PO; km10 06:41 Follow up: Response: No adverse reaction km10 Disposition: 19:11 Chart complete. 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 EDMS EDMS 00:29 00:23 Pelvis+RAD.RAD.BRZ ordered. EDMS EDMS 00:42 00:23 Femur Right+RAD.RAD.BRZ ordered. EDMS EDMS
[2024-07-19] MEDS ORDERED: HYDROCODONE/APAP 10/325 TAB ONE (06:18)
[2024-07-19 07:19] VITALS: TEMP 98.1
[2024-07-19 07:50] VITALS: BP 107/50; O2SAT 95
== END 2024-07-19 07:08 | disposition home or self-care (01) ==
LOC: ER 22:45
DX: T84.021A Dislocation of internal left hip prosthesis, initial encounter (principal); Z96.642 Presence of left artificial hip joint
CPT/HCPCS: 96361; 85025; 36415; 85610; 80053; 72170 ×2; 73552; 96375; 96374; 99285; 27266; J2250; J3010; J2405; J1790; J7040; J7030